=== PATIENT | female | born 2000 | race Caucasian/White ===

== ENCOUNTER 2021-11-26 08:58 | Emergency (ER) | payer OTHER ==
[~2021-11-26] VITALS: Ht 165.1 cm; Wt 152.3 kg
[2021-11-26 09:32] VITALS: TEMP 99
[2021-11-26 10:06] LABS: BASO % 0.4 % (0.0-2.0); EOS # 0.1 K/mm3 (0.0-0.7); EOS % 1.3 % (0.0-4.0); GRAN % 63.7 % (42.2-75.2); HEMATOCRIT 43.8 % (35.0-45.0); HEMOGLOBIN 14.8 g/dl (12.0-15.0); LYMPH # 3.1 K/mm3 (1.2-3.4); LYMPH % 28.5 % (20.0-51.0); MEAN CELL VOLUME 96 fl (80.0-95.0); MEAN CORPUSCULAR HEMOGLOBIN 33 pg (26-32); MEAN CORPUSCULAR HGB CONC 34 g/dl (33.0-37.0); MEAN PLATELET VOLUME 9.7 fl (7.4-10.4); MONO # 0.6 K/mm3 (0.1-0.6); MONO % 5.8 % (1.7-9.3); PLATELET COUNT 321 K/mm3 (130-400); RED BLOOD COUNT 4.55 M/mm3 (4.10-5.30); REDCELL DISTRIBUTION WIDTH-CV 13.6 % (11.5-14.5)
[2021-11-26 10:21] LABS: ALBUMIN 3.9 gm/dL (3.5-5.0); CALCIUM 9.1 mg/dL (8.4-10.2); CREATININE, serum 0.75 mg/dL (0.57-1.11); POTASSIUM 3.4 mmol/L (3.5-4.5)
[2021-11-26 12:00] LABS: COLLECTION METHOD CLEAN CATCH
[2021-11-26 12:05] LABS: PH 6 (5-8); URINE APPEARANCE Clear (CLEAR/HAZY); URINE BACTERIA None Seen /hpf (NONE SEEN); URINE BILIRUBIN Negative (NEGATIVE); URINE BLOOD Negative (NEGATIVE); URINE COLOR Yellow (YELLOW); URINE GLUCOSE Negative (NEGATIVE); URINE KETONE Trace (NEGATIVE); URINE LEUKOCYTE ESTERASE Negative (NEGATIVE); URINE NITRATE Negative (NEGATIVE); URINE PROTEIN(semi-quant) Negative (NEGATIVE); URINE RBC 0-2 /hpf (0-2); URINE UROBILINOGEN Negative (NEGATIVE); URINE WBC 0-2 /hpf (0-2)
[2021-11-26 12:31] VITALS: BP 130/79; PULSE 91
== END 2021-11-26 12:31 | disposition home or self-care (01) ==
LOC: COL.ER 08:58
PROVIDERS: Emergency Medicine
DX: R10.11 Right upper quadrant pain (principal); R42 Dizziness and giddiness; R11.0 Nausea; R00.0 Tachycardia, unspecified; D72.829 Elevated white blood cell count, unspecified; Z32.02 Encounter for pregnancy test, result negative
CPT/HCPCS: C9113; J2405; J7120; Q9967